=== PATIENT | female | born 1955 | race Caucasian/White ===

== ENCOUNTER 2021-01-19 09:57 | Observation (INO) | payer OTHER, SELFPAY ==
[2021-01-19] VITALS (10 sets, daily range): BP systolic 134–164; BP diastolic 72–104; PULSE 75–96; RESP 15–18; TEMP 36.6–36.9; O2SAT 86–97; BMI 37.9; BMI 38.2
--- NOTE | 2021-01-19 10:05 | EKG12_ITS ---
Test Reason : DIZZINESS/CP Blood Pressure : / mmHG Vent. Rate : 076 BPM Atrial Rate : 076 BPM P-R Int : 158 ms QRS Dur : 088 ms QT Int : 374 ms P-R-T Axes : 046 001 031 degrees QTc Int : 420 ms Normal sinus rhythm Normal ECG Confirmed by LILY VILLA, JESUS MANUEL ([id number]), social media editor HARLAN CABRERA ([id number]) on 01/23/2021 11:02:51 A M Referred By: JOSÉ LUIS Confirmed By:MAHESH BAUTISTA MD
--- NOTE | 2021-01-19 10:14 | ED.DCSUM_ITS ---
History of Present Illness Chief Complaint: Palpitations Informant: Patient Narrative: 65-year-old female presenting for evaluation of vertiginous dizziness as well as chest pressure which began this morning. She states that they do not always happen at the same time. She describes the vertiginous symptoms as occurring intermittently and is worse with head turning and movement that has happened when she sitting still. Her chest pressure comes and goes all morning last about 10 seconds. With the chest pressure she states she feels lightheaded and not vertiginous. She has not had fever, cough, change in taste or smell, myalgias. Patient states she has history of diabetes and hypertension. She has never had a stress test. Past Medical History - Allergies and Home Meds Allergies/Adverse Reactions: Allergies No Known Allergies Allergy (Verified 01/19/21 10:30) Past Medical History: - - Diabetes, hypertension Lives: Spouse/ Significant Other Alcohol: None Drugs: None Review of Systems General: Denies: Chills, Fever, Sweats Eyes: Denies: Visual changes - bilaterally, Diplopia ENT: Denies: Rhinorrhea, Sore throat Cardiovascular: Reports: Chest pain, Heart racing Respiratory: Denies: Dyspnea, Cough, Dyspnea on exertion Gastrointestinal: Reports: Nausea. Denies: Abdominal pain, Vomiting, Diarrhea, Melena, Hematochezia Genitourinary: Denies: Dysuria, Hematuria, Frequency Musculoskeletal: Denies: Back pain, Extremity Pain Skin: Denies: Rash, Wounds Neurological: Reports: - - Dizziness Psych: Reports: Depression. Denies: Anxiety Physical Exam Vital Signs/Narrative: Vital Signs Temp Pulse Resp BP Pulse Ox 01/19/21 09:59 97.8 F 85 15 162/104 H 95 General: Obese, No Acute Distress Head: Normocephalic, Atraumatic Eyes: Perrl, EOMI, - - Nystagmus reproduced on Albert-Hallpike exam ENT: Moist mucous membranes, No rhinorrhea Cardiovascular: Regular rate, Regular rhythm Respiratory: No distress, CTA bilaterally Extremities: Nontender, No edema Skin: Normal color, No rash. Negative for: Cyanosis, Diaphoresis Neurological: Alert, Oriented x3, Cranial nerves II-XII grossly intact, - - Dizziness dizziness and nystagmus reproduced with Albert-Hallpike exam. Psychological: Normal affect, Normal Mood Diagnostic/Tx/Re-eval Clinical Impression(s) from Imaging Studies Chest X-Ray 01/19/21 10:20 IMPRESSION: Normal x-ray examination of the chest. Electronically Signed: Yajaira Mata MD at 11:44 EST Tel , Service support , Laboratory Data 01/19/21 01/19/21 01/19/21 10:26 10:26 10:26 WBC 6.6 RBC 4.39 Hgb 13.6 Hct 41.5 MCV 94.5 MCH 31.0 MCHC 32.8 RDW Std Deviation 41.1 RDW Coeff of Heather 11.9 Plt Count 196 MPV 11.3 Immature Gran % (Auto) 0.500 Neut % (Auto) 72.8 H Lymph % (Auto) 19.2 [place] % (Auto) 6.2 Eos % (Auto) 0.8 Baso % (Auto) 0.5 Absolute Neuts (auto) 4.8 Absolute Lymphs (auto) 1.26 Nucleated RBC % 0 D-Dimer Quant (PE/DVT) 0.40 Sodium 139 Potassium 4.5 Chloride 105 Carbon Dioxide 30.0 Anion Gap 4 L BUN 21 H Creatinine 0.78 Estim Creat Clear Calc 62.92 Est GFR (MDRD) Af Amer 96 Est GFR (MDRD) Non-Af 79 BUN/Creatinine Ratio 26.9 H Glucose 163 H Calcium 9.3 Troponin I < 0.015 - Medical Decision Making 65-year-old female presenting with vertiginous dizziness which was reproducible with Albert-Hallpike exam. Patient also having intermittent chest pressure which does not correlate with the dizziness. Patient had EKG performed on arrival which shows a sinus rhythm at 76 bpm without signs of ischemia or dysrhythmia as interpreted by myself. One-view portable chest x-ray as interpreted by myself shows no acute cardiopulmonary process. Radiology does agree. Patient's lab work is unremarkable with exception of slight prerenal azotemia. She will be given IV fluids. D-dimer and troponin are negative. Patient's vertiginous dizziness did improve. Given patient's chest pressure and lightheadedness 9 times today and her heart score of 4 I will admit her to the hospital. She was amenable to this. Impression: 1. Chest pain 2. Vertigo
--- NOTE | 2021-01-19 10:20 | RAD_ITS ---
STUDY: X-RAY CHEST REASON FOR EXAM: Female, 65 years old. chest pain TECHNIQUE: Single AP portable view of the chest. COMPARISON: None. FINDINGS: The lungs are clear and expanded. There is no demonstrated pleural abnormality. Normal size heart. Normal mediastinum and janett. Normal visualized pulmonary arteries. Normal visualized aortic arch and descending thoracic aorta. Normal visualized thoracic spine. Normal visualized ribs, clavicles, and shoulders. There is no demonstrated abnormality of the visualized soft tissue structures of the upper abdomen. RAD/Chest 1 View (Portable) IMPRESSION: Normal x-ray examination of the chest. Electronically Signed: Yajaira Mata MD at 11:44 EST Tel , Service support ,
[2021-01-19] MEDS: Aspirin 81 MG TAB.CHEW 324 MG PO (10:30)
[2021-01-19] MEDS: proMETHazine 25 MG/ML Syringe 12.5 MG IV (10:30)
[2021-01-19] MEDS: Meclizine HCl 25 MG Tablet PO (10:31)
[2021-01-19 10:40] LABS: Absolute Lymphocyte Count 1.26 X10^3/uL (0.83-4.51); Absolute Neutrophil Count 4.8 X10^3/uL (2.0-7.7); Basophil# 0.03 X10^3/uL; Basophil% 0.5 % (0-1); Eosinophil# 0.05 X10^3/uL; Eosinophils% 0.8 % (0-5); Hematocrit 41.5 % (37-47); Hemoglobin 13.6 g/dL (12.0-15.0); Lymphocyte # 1.26 X10^3/ul (4.0); Lymphocyte % 19.2 % (19-41); Mean Corp Hgb Conc 32.8 g/dL (32-36); Mean Corpuscular Volume 94.5 fL (81-99); Mean Platelet Vol. 11.3 fl (6.2-12.0); Monocyte# 0.41 X10^3/uL; Monocyte% 6.2 % (0-10); NRBC Flagged by Analyzer 0 % (0-5); Neutrophil # 4.79 X10^3/uL (2.7-7.7); Neutrophil % 72.8 % (47-70); Platelet Count 196 K/mm3 (150-450); RBC Distribution Width CV 11.9 % (11.6-14.6); RBC Distribution Width SD 41.1 fl (35.1-43.9); Red Blood Count 4.39 M/mm3 (4.2-5.4); White Blood Count 6.6 K/mm3 (4.4-11.0)
[2021-01-19 10:55] LABS: Anion Gap 4 (5-15); BUN 21 mg/dL (7-18); BUN/Creat Ratio 26.9 RATIO (10-20); Calcium,Total 9.3 mg/dL (8.5-10.1); Chloride 105 mmol/L (98-107); Creatinine, Serum 0.78 mg/dL (0.55-1.02); EST Glomerular Filtration Rate 79 mL/min (>60); Est Glom Filt Rate - Afr Amer 96 mL/min (>60); Estimated Creatinine Clearance 62.92 ml/min; Glucose 163 mg/dL (74-106); Potassium 4.5 mmol/L (3.5-5.1); Sodium Level 139 mmol/L (136-145)
--- NOTE | 2021-01-19 13:01 | HP.PCM_ITS ---
Problem List (1) Chest pain Status: Acute (2) Type 2 diabetes mellitus Status: Chronic History of Present Illness Date of Admission: 01/19/21 Chief Complaint: Chest pressure, dizziness. The patient is a 65 year old F who presents to the emergency room due to chest pressure and dizziness. Patient states this began this morning. She reports a history of vertigo however states her dizziness feels different than prior epi sodes of vertigo. Chest pressure and dizziness episodes last about 30 seconds and resolve without intervention. She states they occur while at rest and with movement. No aggravating or alleviating factors. She denies shortness of breath, palpitations. She has a past medical history of hypertension, type 2 diabetes mellitus. Past Medical History Past Medical History (Chronic Problems): Chronic Problems Type 2 diabetes mellitus (Chronic) Allergies No Known Allergies Allergy (Verified 01/19/21 10:30) Home Medications: Ambulatory Orders Medication Instructions Recorded Ascorbic Acid [Vitamin C] 500 mg PO DAILY 01/19/21 Aspirin 81 mg PO DAILY 01/19/21 Calcium Carbonate [Elemental 600 mg PO DAILY 01/19/21 Calcium] Cholecalciferol (Vitamin D3) 100 mcg PO DAILY 01/19/21 [Vitamin D3] Cyanocobalamin (Vitamin B-12) 2,000 mcg PO DAILY 01/19/21 [Vitamin B-12] Lisinopril/Hydrochlorothiazide 1 ea PO DAILY 01/19/21 [Lisinopril-Hctz 20-12.5 mg Tab] Magnesium 250 mg PO DAILY 01/19/21 Metformin HCl [Metformin ER 500 mg PO DAILY 01/19/21 Gastric] Potassium 99 mg PO DAILY 01/19/21 Vitamin A 10,000 unit PO DAILY 01/19/21 Surgical History: - - Hernia surgery Psychiatric History: No pertinent psych hx MUSHROOM PACKER History: No pertinent MUSHROOM PACKER history Lives: Spouse/ Significant Other Smoking Status: Former smoker - Quit 35 years ago Alcohol: None Drugs: None - *Family History Maternal History Items: Diabetes, - - CHF Paternal History Items: Diabetes Review of Systems Constitutional: Denies: Chills, Fever, Weight Change HEENT: Denies: Head Aches, Sinus Congestion, Sinus Drainage Cardiovascular: Reports: Chest Pressure, - - Dizziness. Denies: Palpitations, Syncope Respiratory: Denies: Cough, Shortness of breath at rest, Sputum production Gastrointestinal: Denies: Abdominal Pain, Nausea, Vomiting Genitourinary: Denies: Dysuria Musculoskeletal: Denies: Joint Pain, Joint Tenderness Skin: Denies: Rash, Wounds Neurological: Denies: Numbness, Tingling, Focal weakness Psychiatric: Denies: Anxiety, Depression, Homicidal Ideations, Suicidal Ideations Hematologic/ Lymphatic: Denies: Easy Bruising, Easy Bleeding VTE Information - Inpt Only VTE Present on Admission: No VTE Mechan Device Prophylaxis: None VTE Pharm Prophylaxis ordered?: Yes - Physical Exam Vitals/I&O's: Vital Signs Temp Pulse Resp BP Pulse Ox 97.8 F 80 18 134/78 H 97 01/19/21 11:39 01/19/21 11:39 01/19/21 11:39 01/19/21 11:39 01/19/21 11:39 Oxygen Flow Rate (L/min) 2 Oxygen Delivery Method Room Air Weight: 222 lb 10.67 oz Body Mass Index (BMI) 38.2 Intake and Output for Last 24 Hours 01/17/21 01/18/21 01/19/21 23:59 23:59 23:59 Intake Total 500 / 500 Balance 500 / 500 General: Alert, Oriented x3, Cooperative HEENT: Atraumatic, PERRLA, EOMI, Normocephalic Neck: Supple, No JVD, Negative Carotid Bruits Lungs: Clear to auscultation, Normal air movement Cardiovascular: Regular rate, No murmurs Abdomen: Bowel Sounds Present, Soft, Non Tender, Non-Distended, Obese Extremities: No edema, Capillary Refill Less than 3 Seconds Skin: No rashes, No breakdown Musculoskeletal: No Tenderness to Palpation of Joints or Extremities Neurological: Cranial nerves II-XII grossly intact, Neuro grossly intact Psych/Mental Status: Normal Affect, Appropriate Laboratory Results 01/19/21 10:26: WBC 6.6, RBC 4.39, Hgb 13.6, Hct 41.5, MCV 94.5, MCH 31.0, MCHC 32.8, RDW Std Deviation 41.1, RDW Coeff of Heather 11.9, Plt Count 196, MPV 11.3, Immature Gran % (Auto) 0.500, Neut % (Auto) 72.8 H, Lymph % (Auto) 19.2, [place] % (Auto) 6.2, Eos % (Auto) 0.8, Baso % (Auto) 0.5, Absolute Neuts (auto) 4.8, Absolute Lymphs (auto) 1.26, Nucleated RBC % 0 01/19/21 10:26: D-Dimer Quant (PE/DVT) 0.40 01/19/21 10:26: Sodium 139, Potassium 4.5, Chloride 105, Carbon Dioxide 30.0, Anion Gap 4 L, BUN 21 H, Creatinine 0.78, Estim Creat Clear Calc 62.92, Est GFR (MDRD) Af Amer 96, Est GFR (MDRD) Non-Af 79, BUN/Creatinine Ratio 26.9 H, Glucose 163 H, Calcium 9.3, Troponin I < 0.015 Current Medications Acetaminophen (Acetaminophen 325 Mg Tablet) 650 mg PO Q6H PRN PRN PRN Reason: Pain Score 1-10/Temp > 100.7 F Diazepam (Diazepam 2 Mg Tablet) 2 mg PO TID PRN PRN PRN Reason: VERTIGO Hydrochlorothiazide (Hydrochlorothiazide 12.5mg) 12.5 mg PO DAILY [facility] Insulin Human Lispro (Insulin Lispro 100 Unit/Ml Insuln.Pen) 0 unit SC ACHS [facility]; Protocol Lisinopril (Lisinopril 20 Mg Tablet) 20 mg PO DAILY [facility] Ondansetron HCl (Ondansetron 4 Mg/2 Ml Vial) 4 mg IV Q8H PRN PRN PRN Reason: NAUSEA/VOMITING Sodium Chloride (0.9% Saline Lock 10 Ml Syringe) 10 - 40 ml IV UD PRN PRN Reason: SALINE FLUSH Temazepam (Temazepam 15 Mg Capsule) 15 mg PO QHS PRN PRN PRN Reason: INSOMNIA Assessment/Plan All Active Problems Chest pain (Acute) 1. Chest pressure, dizziness-initial troponin negative. EKG without ST-T changes. Trend enzymes. Plan for stress test in a.m. Dizziness associated with episodes of chest pressure. Seems atypical for vertigo however will try as needed volume or dizziness. Check orthostatic vitals. 2. Type 2 diabetes mellitus-hold metformin. Accu-Cheks with sliding scale insulin. 3. Hypertension-stable, on lisinopril/HCTZ. DVT prophylaxis-ambulatory, low risk This patient was seen by LUCY Katz under the supervision of Dr. Garcia.
--- NOTE | 2021-01-19 13:02 | EKG12_ITS ---
Test Reason : Blood Pressure : / mmHG Vent. Rate : 070 BPM Atrial Rate : 070 BPM P-R Int : 162 ms QRS Dur : 086 ms QT Int : 388 ms P-R-T Axes : 047 -05 024 degrees QTc Int : 419 ms Normal sinus rhythm Low voltage QRS Borderline ECG When compared with ECG of 19-JAN-2021 10:11, MANUAL COMPARISON REQUIRED, DATA IS UNCONFIRMED Confirmed by JESSY VILLA, ROB ([id number]), editorial assistant HARLAN CABRERA ([id number]) on 01/25/2021 10:27:15 AM Referred By: MARSHA Confirmed By:ROB JIMÉNEZ MD
[2021-01-19] MEDS: Insulin Lispro 100 UNIT/ML INSULN.PEN SC ×2 (17:59→21:24)
[2021-01-19 18:05] LABS: Bedside Glucose 154 mg/dL (70-110)
[2021-01-19] MEDS: Acetaminophen 325 MG Tablet 650 MG PO (20:56)
[2021-01-19 21:31] LABS: Bedside Glucose 170 mg/dL (70-110)
[2021-01-20 01:00] VITALS: PULSE 70
[2021-01-20 05:05] VITALS: BP 125/74; PULSE 65; RESP 16; TEMP 36.6; O2SAT 94
[2021-01-20 06:59] VITALS: PULSE 67
[2021-01-20 07:05] LABS: Bedside Glucose 148 mg/dL (70-110)
[2021-01-20 10:14] VITALS: BP 137/83; PULSE 80; RESP 16; TEMP 36.6; O2SAT 97
[2021-01-20] MEDS: hydroCHLOROthiazide 12.5mg 12.5 MG PO (10:18)
[2021-01-20] MEDS: Lisinopril 20 MG Tablet PO (10:18)
--- NOTE | 2021-01-20 11:27 | DCINST_ITS ---
- Discharge Diagnoses Current Active Problems: Current Active and Chronic Problems Chest pain (Acute) Type 2 diabetes mellitus (Chronic) You will use the following diet at home:: No restrictions Your food should be the consistency of: Regular Your liquids should be the consistency of: Regular/Thin Discharge Activity: Return to Normal Activity Weight Bearing Status: Full weight bearing Allergies/Adverse Reactions: Allergies No Known Allergies Allergy (Verified 01/19/21 10:30) Medications to take at Discharge Ascorbic Acid [Vitamin C] 500 mg PO DAILY 01/19/21 Aspirin 81 mg PO DAILY 01/19/21 Calcium Carbonate [Calcium] 600 mg PO DAILY 01/19/21 Cholecalciferol (Vitamin D3) [Vitamin D3] 100 mcg PO DAILY 01/19/21 Cyanocobalamin (Vitamin B-12) [Vitamin B-12] 2,000 mcg PO DAILY 01/19/21 Lisinopril/Hydrochlorothiazide [Lisinopril-Hctz 20-12.5 mg Tab] 1 ea PO DAILY 01/19/21 Magnesium 250 mg PO DAILY 01/19/21 Metformin HCl [Metformin ER Gastric] 500 mg PO DAILY 01/19/21 Primary Care Physician: Yojana Payton MD [Primary Care Provider] - Please follow up with your Primary Care Physician in: in 2-3 wweks Test Results: Test results from this visit will be discussed in further detail at your follow- up appointment, if applicable.
[2021-01-20 11:29] VITALS: PULSE 70
[2021-01-20] MEDS: Insulin Lispro 100 UNIT/ML INSULN.PEN SC (11:44)
[2021-01-20 12:10] LABS: Bedside Glucose 166 mg/dL (70-110)
--- NOTE | 2021-01-20 13:25 | STRESSREP ---
Stress Test Report Date: 01/20/2021 Procedure: Pharmacologic stress nuclear imaging study Indications: Chest pain Consent: Per the patient Procedure: The patient underwent pharmacologic (Regadenoson) evaluation with a peak heart rate of 118 beats per minute (75%predicted maximal heart rate) and a peak blood pressure of 140/86 mmHg. The baseline ECG demonstrated normal sinus rhythm, poor R wave progression in the anterior leads. EKG during lexiscan infusion revealed no significant ischemic changes. EKG post infusion revealed no significant ischemic changes [There were no cardiac dysrhythmias pretest, during pharmacologic infusion, or recovery]. [There was no complaint of chest discomfort during pharmacologic infusion or recovery]. The examination was discontinued secondary to completion of protocol. Impression: 1. Lexiscan stress test test is negative for Lexiscan infusion induced EKG changes of ischemia. 2. Lexiscan stress test test is negative for Lexiscan infusion induced chest pain. 3. Results of the nuclear portion of the test is as below Myocardial perfusion imaging study: Technique: The patient was injected with 14.2 millicuries of technetium 99m Cardiolite and subsequently rest SPECT Cardiolite nuclear imaging was obtained in the horizontal long, vertical long, and short axis views. The patient underwent pharmacologic [Regadenoson 0.4mg] evaluation. Please see above for details. The patient was injected with 44.5 millicuries of technetium 99m Cardiolite and subsequently stress SPECT Cardiolite nuclear imaging was obtained in the horizontal long, vertical long, and short axis views. A gated Cardiolite study at peak stress was obtained. Interpretation: Rest and stress SPECT Cardiolite nuclear imaging status post realignment, normalization, and attenuation correction demonstrate no significant ischemia or infarction. Gated images reveal no significant regional wall motion abnormalities. The reported LVEF is 61%. Impression: 1. There is no evidence of significant ischemia or infarction. 2. Estimated ejection fraction is 61%. This note was generated with LumeJetation software. It may contain incorrect words, spelling, and punctuation that were not noted in checking the note before signing.
--- NOTE | 2021-01-20 13:56 | PCM.DC.SUM ---
Discharge Date and Diagnosis - Problem List Patient Problems: Active and Suspected Problems Chest pain (Acute) Date of Admission: 01/19/21 Date of Discharge: 01/20/21 - Primary Discharge Diagnosis Acute Problems: Active Problems 1. Noncardiac chest pain 2. Type 2 diabetes mellitus 3. Hypertension - Secondary Discharge Diagnosis Chronic Problems: Chronic Problems Type 2 diabetes mellitus (Chronic) Hospital Course and Treatment Imaging Results: Diagnostic Data Chest X-Ray 01/19/21 10:20 IMPRESSION: Normal x-ray examination of the chest. Electronically Signed: Yajaira Mata MD at 11:44 EST Tel , Service support , Operations: None Procedures: Stress test Summary of Care Provided: The patient is a 65 year old F admitted 01/19/2021 due to chest pressure and dizziness. 1. Noncardiac chest pain-troponin negative. EKG without ST-T changes. Dizziness associated with episodes of chest pressure. Atypical for vertigo. Symptoms have resolved. Patient underwent nuclear stress test which was negative for ischemia, estimated ejection fraction 61%. Orthostatic vitals negative. Follow-up with PCP in 1 week. 2. Type 2 diabetes mellitus-continue home metformin regimen 3. Hypertension-stable, on lisinopril/HCTZ. General: Alert, Oriented x3, Cooperative HEENT: Atraumatic, PERRLA, EOMI, Normocephalic Neck: Supple, No JVD, Negative Carotid Bruits Lungs: Clear to auscultation, Normal air movement Cardiovascular: Regular rate, No murmurs Abdomen: Bowel Sounds Present, Soft, Non Tender, Non-Distended, Obese Extremities: No edema, Capillary Refill Less than 3 Seconds Skin: No rashes, No breakdown Musculoskeletal: No Tenderness to Palpation of Joints or Extremities Neurological: Cranial nerves II-XII grossly intact, Neuro grossly intact Psych/Mental Status: Normal Affect, Appropriate Patient seen and examined prior to discharge. Physical assessment as noted above. Patient is stable for discharge with follow up recommendations as noted above. This patient was seen by LUCY Katz under the supervision of Dr. Garcia. Patient Problems: Active and Suspected Problems Chest pain (Acute) - Physical Exam Vitals/I&O's: Vital Signs Temp Pulse Resp BP Pulse Ox 97.8 F 70 16 137/83 H 97 01/20/21 10:14 01/20/21 11:29 01/20/21 10:14 01/20/21 10:14 01/20/21 10:14 Oxygen Flow Rate (L/min) 2 Oxygen Delivery Method Room Air Weight: 222 lb 10.67 oz Body Mass Index (BMI) 38.2 Orthostatic Vital Signs Start: 01/19/21 15:40 Freq: X1 Status: Active Protocol: Activity Type Activity Date Activity User E-Sign Co-Sign Detail Recorded Client Recorded Date Recorded By Document 01/19/21 15:35 [id number] 01/19/21 15:47 01/19/21 15:35 Orthostatic Vitals Standing -Blood Pressure (90/60-120/80) 147/87 H -Extremity Use Right Arm -Pulse Rate (60-100) 93 Sitting -Blood Pressure (90/60-120/80) 164/89 H -Extremity Use Right Arm -Pulse Rate (60-100) 87 Lying -Blood Pressure (90/60-120/80) 154/72 H -Extremity Use Right Arm -Pulse Rate (60-100) 83 Intake and Output for Last 24 Hours 01/18/21 01/19/21 01/20/21 23:59 23:59 23:59 Intake Total 500 / 740 240 / 240 Balance 500 / 740 240 / 240 Laboratory Results 01/19/21 13:36: Troponin I < 0.015 01/19/21 16:42: Troponin I < 0.015 01/19/21 17:48: POC Glucose 154 H 01/19/21 21:14: POC Glucose 170 H 01/20/21 06:31: POC Glucose 148 H 01/20/21 11:43: POC Glucose 166 H Current Medications Acetaminophen (Acetaminophen 325 Mg Tablet) 650 mg PO Q6H PRN PRN PRN Reason: Pain Score 1-10/Temp > 100.7 F Last Admin: 01/19/21 20:56 Dose: 650 mg Documented by: Diazepam (Diazepam 2 Mg Tablet) 2 mg PO TID PRN PRN PRN Reason: VERTIGO Hydrochlorothiazide (Hydrochlorothiazide 12.5mg) 12.5 mg PO DAILY PER[facility] Last Admin: 01/20/21 10:18 Dose: 12.5 mg Documented by: Insulin Human Lispro (Insulin Lispro 100 Unit/Ml Insuln.Pen) 0 unit SC ACHS [facility]; Protocol Last Admin: 01/20/21 11:44 Dose: 2 u Documented by: Lisinopril (Lisinopril 20 Mg Tablet) 20 mg PO DAILY [facility] Last Admin: 01/20/21 10:18 Dose: 20 mg Documented by: Ondansetron HCl (Ondansetron 4 Mg/2 Ml Vial) 4 mg IV Q8H PRN PRN PRN Reason: NAUSEA/VOMITING Sodium Chloride (0.9% Saline Lock 10 Ml Syringe) 10 - 40 ml IV UD PRN PRN Reason: SALINE FLUSH Temazepam (Temazepam 15 Mg Capsule) 15 mg PO QHS PRN PRN PRN Reason: INSOMNIA Discharge Diet: Carb Control Diet Discharge Activity: Return to Normal Activity Weight Bearing Status: Full weight bearing Home Medications: Medications to take at Discharge Ascorbic Acid [Vitamin C] 500 mg PO DAILY 01/19/21 Aspirin 81 mg PO DAILY 01/19/21 Calcium Carbonate [Calcium] 600 mg PO DAILY 01/19/21 Cholecalciferol (Vitamin D3) [Vitamin D3] 100 mcg PO DAILY 01/19/21 Cyanocobalamin (Vitamin B-12) [Vitamin B-12] 2,000 mcg PO DAILY 01/19/21 Lisinopril/Hydrochlorothiazide [Lisinopril-Hctz 20-12.5 mg Tab] 1 ea PO DAILY 01/19/21 Magnesium 250 mg PO DAILY 01/19/21 Metformin HCl [Metformin ER Gastric] 500 mg PO DAILY 01/19/21 Primary Care Physician: Yojana Payton MD [Primary Care Provider] - Please follow up with your Primary Care Physician in: in 2-3 wweks Disposition: Home Minutes spent on discharge:: 35 Patient Condition:: Stable Medical Necessity - Tobacco Use Smoking Status: Former smoker - Quit 35 years ago Meaningful Use Info Meaningful Use Diagnoses (Choose all that apply): None applicable
[2021-01-20 14:14] VITALS: BP 155/86; PULSE 68; RESP 16; TEMP 36.5; O2SAT 98
== END 2021-01-20 11:54 | disposition home or self-care (01) ==
LOC: ED 11:26 → PCU 11:53
PROVIDERS: Admitting Provider Internal Medicine; Emergency Provider Student in an Organized Health Care Education/Training Program; PCP Internal Medicine; Visit Provider Internal Medicine
DX: R07.89 Other chest pain (principal); E11.9 Type 2 diabetes mellitus without complications; I10 Essential (primary) hypertension; R42 Dizziness and giddiness; Z79.899 Other long term (current) drug therapy; Z79.82 Long term (current) use of aspirin; Z79.84 Long term (current) use of oral hypoglycemic drugs; Z87.891 Personal history of nicotine dependence
CPT/HCPCS: 36415; 71045; 78452; 80048; 82962; 84484; 85025; 85379; 93005; 93017; 96361; 96374; 99218; 99285; A9500; J7040; A4216; G0378